=== PATIENT | male | born 1985 | race African-American/Black ===

== ENCOUNTER 2021-08-19 12:03 | Inpatient (IN) | payer MEDICAID ==
[~2021-08-19] VITALS: Ht 172.7 cm; Wt 122.0 kg
[2021-08-19] MEDS ORDERED: MORPHINE SULFATE 4 MG/ML CPJ (NOT FOR IM USE) IV STA (12:21)
[2021-08-19] MEDS ORDERED: ONDANSETRON HCL 4MG/2ML INJ IV STA (12:21)
[2021-08-19] MEDS ORDERED: NITROGLYCERIN OINT 1GM/INCH UDPKT TD ONE (12:30)
[2021-08-19] MEDS ORDERED: ASPIRIN 81MG TABLET PO ONE (12:30)
[2021-08-19 13:06] LABS: BASOPHILS % 0.7 % (0.0-2.0); HEMATOCRIT. 46.9 % (42.0-52.0); HEMOGLOBIN. 16.3 g/dL (14.0-18.0); LYMPHOCYTES % 21.7 % (20.0-50.0); MEAN PLATELET VOLUME 8.9 fl (7.4-10.4); MONOCYTES % 6.6 % (2.0-8.0); PLATELET 126 x1000/uL (130-400); RED CELL DISTRIBUTION WIDTH 13.3 % (11.6-14.6)
[2021-08-19 13:11] LABS: CHLORIDE 102 mEq/L (98-107)
[2021-08-19] MEDS ORDERED: LABETALOL 5MG/ML SYR 20 MG/4 ML SYRINGE IV ONE (13:30)
[2021-08-19] MEDS ORDERED: CLONIDINE 0.1MG TABLET PO PRN (16:30)
[2021-08-19] MEDS ORDERED: HYDRALAZINE 20MG/ML VIAL IV PRN (16:30)
[2021-08-19] MEDS ORDERED: ACETAMINOPHEN 325MG TABLET PO PRN ×2 (16:30)
[2021-08-19] MEDS ORDERED: DIPHENHYDRAMINE 50MG/ML VIAL IV PRN (16:30)
[2021-08-19] MEDS ORDERED: ONDANSETRON HCL 4MG/2ML INJ IV PRN (16:30)
[2021-08-19] MEDS ORDERED: ZOLPIDEM TARTRATE 5MG TABLET PO PRN (21:00)
[2021-08-19] MEDS: AMLODIPINE 5MG TABLET PO SCH (21:59)
[2021-08-19] MEDS ORDERED: HYDRALAZINE HCL 100MG TABLET PO SCH (22:00)
[2021-08-19] MEDS: SODIUM CHLORIDE 0.9% INJ 3ML FLUSH IVF SCH (22:04)
[2021-08-19 23:59] VITALS: BP 150/83
[2021-08-20 04:00] VITALS: BP 151/88
[2021-08-20] MEDS: SODIUM CHLORIDE 0.9% INJ 3ML FLUSH IVF SCH (06:00)
[2021-08-20] MEDS ORDERED: HYDR-4134 MT (06:09)
[2021-08-20] MEDS ORDERED: LISI10TA26 MT (06:09)
[2021-08-20 08:00] VITALS: BP 171/101
[2021-08-20] MEDS ORDERED: LISINOPRIL 20MG TABLET PO SCH (09:00)
[2021-08-20] MEDS: AMLODIPINE 5MG TABLET PO SCH (09:33)
[2021-08-20 12:00] VITALS: BP 151/88
[2021-08-20 16:00] VITALS: BP 146/88
[2021-08-20] MEDS ORDERED: LISI20TA31 PO (17:22)
[2021-08-20] MEDS ORDERED: AMLO10TA80 PO (17:23)
[2021-08-20 17:24] VITALS: BP 146/88
== END 2021-08-20 18:17 | disposition home or self-care (01) | DRG 203 ==
LOC: ER 12:03 → 6WST 14:43 → EDBEDREQ 14:45 → EDBEDREQTM 14:45 → ENRESERV 21:25
PROVIDERS: ADMIT Internal Medicine; ATTEND Internal Medicine
DX: M94.0 Chondrocostal junction syndrome [Tietze] (principal); F22 Delusional disorders; F12.90 Cannabis use, unspecified, uncomplicated; F41.9 Anxiety disorder, unspecified; I10 Essential (primary) hypertension; Z79.899 Other long term (current) drug therapy; Z82.49 Family history of ischemic heart disease and other diseases of the circulatory system; Z20.822 Contact with and (suspected) exposure to COVID-19
CPT/HCPCS: 36415; 71045; 80053; 83036; 83880; 84484; 85025; 87426; 93005; 93306; 93970; 99291; J2270; J2405

== ENCOUNTER 2022-03-18 12:47 | Emergency (ER) | payer MEDICAID ==
[~2022-03-18] VITALS: Ht 172.7 cm; Wt 97.0 kg
[~2022-03-18 12:47] MED LIST: AMLO10TA80 PO; LISI20TA31 PO
[2022-03-18 12:49] VITALS: BP 162/5
[2022-03-18] MEDS ORDERED: MAGNESIUM/ALUMINUM HYDROXIDE/SIMETHICONE 30ML UDC PO STA (12:58)
[2022-03-18] MEDS ORDERED: VISCOUS LIDOCAINE 2% 15 ML UDC MM STA (12:58)
[2022-03-18] MEDS ORDERED: FAMOTIDINE 20MG TABLET PO ONE (13:00)
[2022-03-18] MEDS ORDERED: ONDANSETRON 4MG ODT PO ONE (13:00)
[2022-03-18 14:17] LABS: BASOPHILS % 0.8 % (0.0-2.0); EOSINOPHILS % 0.2 % (0.0-5.0); HEMATOCRIT. 45.5 % (42.0-52.0); HEMOGLOBIN. 15.8 g/dL (14.0-18.0); MEAN CORPUSCULAR HEMOGLOBIN 31.8 pg (28.0-32.0); MEAN CORPUSCULAR VOLUME 91.3 fL (80.0-94.0); MEAN PLATELET VOLUME 9.1 fl (7.4-10.4); MONOCYTES % 7.7 % (2.0-8.0); NEUTROPHILS % 73.3 % (40.0-76.0); PLATELET 161 x1000/uL (130-400); RED BLOOD CELL COUNT 4.98 mill/uL (4.7-6.1); RED CELL DISTRIBUTION WIDTH 13.3 % (11.6-14.6)
[2022-03-18 14:23] LABS: CHLORIDE 101 mEq/L (98-107)
[2022-03-18 14:27] LABS: INR 1.1; PROTHROMBIN TIME 11.8 sec (9.6-11.0)
[2022-03-18 14:32] LABS: ETHANOL BLOOD < 10 mg/dL
[2022-03-18] MEDS ORDERED: FAMOTIDINE 20MG TABLET PO NR (15:45)
[2022-03-18] MEDS ORDERED: MAGNESIUM/ALUMINUM HYDROXIDE/SIMETHICONE 30ML UDC PO NR (15:45)
[2022-03-18] MEDS ORDERED: VISCOUS LIDOCAINE 2% 15 ML UDC MM NR (15:45)
[2022-03-18] MEDS ORDERED: ONDANSETRON 4MG ODT PO NR (15:45)
[2022-03-18] MEDS ORDERED: MAG-55 MT (18:17)
[2022-03-18] MEDS ORDERED: POLY17PO3 MT (18:17)
[2022-03-18] MEDS ORDERED: FAMO40TA70 MT (18:17)
== END 2022-03-18 18:23 | disposition home or self-care (01) ==
LOC: ER 12:47
DX: K21.9 Gastro-esophageal reflux disease without esophagitis (principal); K29.70 Gastritis, unspecified, without bleeding; K59.00 Constipation, unspecified; E11.9 Type 2 diabetes mellitus without complications; I10 Essential (primary) hypertension
CPT/HCPCS: 36415; 71045; 74176; 76700; 80053; 80320; 83690; 85025; 85610; 86850; 86900; 86901; 93005; 99285; Q0162; G0480